=== PATIENT | female | born 1995 | race Caucasian/White ===

== ENCOUNTER 2019-08-22 17:52 | Emergency (ER) | payer OTHER ==
[2019-08-22 18:39] VITALS: BP 119/70; PULSE 97; TEMP 98.2
[2019-08-22] MEDS ORDERED: DEXTROSE 5%-LACTATED RINGERS 500 ML IV ONE (19:00)
[2019-08-22 20:05] LABS: EPI CELLS 6.6 /HPF (0-5/HPF); HYALINE CASTS 1 /lpf (0-8); PH,URINE 6.5 (5.0-8.0); URINE APPEARANCE CLEAR; URINE BACTERIA 170.2 /hpf (NEGATIVE); URINE BILIRUBIN NEGATIVE (NEGATIVE); URINE COLOR YELLOW; URINE GLUCOSE (UA) NEGATIVE (NEGATIVE); URINE KETONE NEGATIVE (NEGATIVE); URINE LEUK ESTERASE TRACE (NEGATIVE); URINE NITRITE NEGATIVE (NEGATIVE); URINE PROTEIN NEGATIVE (NEGATIVE); URINE RBC 1 /hpf (0-4); URINE UROBILINOGEN 0.2 mg/dL (0.2-1.0); URINE WBC 7 /hpf (0-5)
[2019-08-22 20:08] LABS: HEMATOCRIT 34.1 % (32.4-45.2); HEMOGLOBIN 11.4 GM/dL (10.7-15.3); MCH 31.6 pg (25.7-33.7); MCHC 33.4 g/dl (32.0-36.0); MEAN CELL VOLUME 94.7 fl (80-96); MEAN PLT VOLUME 9.9 fl (7.5-11.1); PLATELET COUNT 232 K/MM3 (134-434); RDW 13.7 % (11.6-15.6); WHITE BLOOD COUNT 11.8 K/mm3 (4.0-10.0)
[2019-08-22 20:35] LABS: ALBUMIN 2.7 g/dl (3.4-5.0); BILIRUBIN,TOTAL 0.6 mg/dL (0.2-1); BLOOD UREA NITROGEN 6.5 mg/dL (7-18); CALCIUM 8.7 mg/dL (8.5-10.1); CREATININE 0.6 mg/dL (0.55-1.3); POTASSIUM 3.7 mmol/L (3.5-5.1); TOT PROT 6.1 g/dl (6.4-8.2)
== END 2019-08-22 22:22 | disposition home or self-care (01) ==
LOC: JER 17:52
DX: O26.893 Other specified pregnancy related conditions, third trimester (principal); Z3A.32 32 weeks gestation of pregnancy; R10.30 Lower abdominal pain, unspecified
CPT/HCPCS: 36415; 80053; 81003; 85027; 87077; 87086; 99281-25

== ENCOUNTER 2023-07-28 14:00 | Inpatient (IN) | payer OTHER ==
[2023-07-29] MEDS ORDERED: ELECTROLYTE-148 SOLN 500 ML IV ONE (06:00)
[2023-07-29] MEDS ORDERED: CITRIC ACID/SODIUM CITRATE 30 ML UNIT-DOSE CUP PO ONE (06:00)
[2023-07-29 06:34] VITALS: BMI 42.0
[2023-07-29] MEDS ORDERED: AMPICILLIN SODIUM 2 GM VIAL ONE (06:53)
[2023-07-29] MEDS ORDERED: AMPICILLIN - 2 GM in SODIUM CHLORIDE 100 ML IVPB ONE ×2 (06:55→07:41)
[2023-07-29] MEDS ORDERED: CEFAZOLIN SODIUM 2 GM in DEXTROSE 5%-WATER 100 ML IVPB ONE (07:03)
[2023-07-29] MEDS ORDERED: OXYTOCIN 20 UNITS in 0.9% NS 40 UNIT/2,000 ML INFUS.BAG IV ONE (07:55)
[2023-07-29] MEDS ORDERED: ONDANSETRON 4 MG/2 ML VIAL ONE (07:57)
[2023-07-29] MEDS ORDERED: DEXAMETHASONE SOD PHOSPHATE 4 MG/1 ML VIAL ONE (07:57)
[2023-07-29] MEDS ORDERED: ceFAZolin SODIUM 1 GM VIAL ONE (07:57)
[2023-07-29] MEDS ORDERED: morphine SULFATE/PF 1 MG/2 ML (2cc Syringe - QUVA) ONE (07:58)
[2023-07-29] MEDS ORDERED: METHYLERGONOVINE MALEATE 0.2 MG/1 ML AMP IM PRN (09:04)
[2023-07-29] MEDS ORDERED: IBUPROFEN 800 MG/8 ML IJ IVPB PRN (09:05)
[2023-07-29] MEDS ORDERED: CEFAZOLIN SODIUM 2 GM in DEXTROSE 5%-WATER 100 ML IVPB SCH (09:15)
[2023-07-29] MEDS ORDERED: ONDANSETRON 4 MG/2 ML VIAL IVPUSH PRN (09:16)
[2023-07-29 09:26] LABS: CORD BASE EXCESS -1.7 mmol/L (0-2); CORD HCO3 24.7 mmHg (20-29); CORD PCO2 47.8 mmHg (30-78); CORD pH 7.332 (7.14-7.44)
[2023-07-29 09:28] LABS: CORD HCO3 27.7 mmHg (20-29); CORD pH 7.261 (7.14-7.44)
[2023-07-29] MEDS: ACETAMINOPHEN 1000 MG/100 ML BAG IVPB PRN ×2 (10:12→23:34)
[2023-07-29] MEDS: ENOXAPARIN NA (PORCINE) 40 MG/0.4 ML DISP.SYRIN SQ SCH (12:07)
[2023-07-29] MEDS: ELECTROLYTE-148 SOLN 1,000 ML IV SCH (12:08)
[2023-07-29] MEDS: OXYTOCIN 20 UNITS in 0.9% NS 20 UNIT/1,000 ML INFUS.BAG IV SCH ×2 (14:18→23:00)
[2023-07-29] MEDS: CEFAZOLIN SODIUM 2 GM in DEXTROSE 5%-WATER 100 ML IVPB SCH (16:59)
[2023-07-29] MEDS ORDERED: oxyCODONE HCL 5 MG TABLET PO PRN ×2 (21:04)
[2023-07-29] MEDS: SIMETHICONE 80 MG TAB.CHEW (FP) PO PRN (22:00)
[2023-07-30] MEDS: CEFAZOLIN SODIUM 2 GM in DEXTROSE 5%-WATER 100 ML IVPB SCH ×2 (00:19→08:46)
[2023-07-30] MEDS: SIMETHICONE 80 MG TAB.CHEW (FP) PO PRN ×2 (06:30→21:09)
[2023-07-30 08:24] LABS: BASO % 0.2 % (0-2.0); EOS % 0.7 % (0-4.5); HEMATOCRIT 30.4 % (32.4-45.2); HEMOGLOBIN 10.3 GM/dL (10.7-15.3); LYMPH % 22.6 % (8-40); MCH 31.1 pg (25.7-33.7); MEAN CELL VOLUME 91.4 fl (80-96); MEAN PLT VOLUME 9.4 fl (7.5-11.1); MONO % 6.2 % (3.8-10.2); NEUT % 70.3 % (42.8-82.8); PLATELET COUNT 188 10^3/uL (134-434); RBC 3.33 M/mm3 (3.60-5.2); WHITE BLOOD COUNT 10.1 K/mm3 (4.0-10.0)
[2023-07-30] MEDS: ENOXAPARIN NA (PORCINE) 40 MG/0.4 ML DISP.SYRIN SQ SCH (10:57)
[2023-07-30] MEDS: IBUPROFEN 600 MG TABLET (FP) PO PRN ×2 (12:25→21:10)
[2023-07-30] MEDS: BISACODYL 10 MG SUPP.RECT RC PRN (21:09)
[2023-07-30] MEDS: SENNOSIDES/DOCUSATE COMBO (SENNA PLUS) TABLET (UD) PO PRN (22:38)
[2023-07-31] MEDS: SIMETHICONE 80 MG TAB.CHEW (FP) PO PRN ×4 (01:42→21:33)
[2023-07-31] MEDS: IBUPROFEN 600 MG TABLET (FP) PO PRN ×3 (07:33→21:33)
[2023-07-31] MEDS: ENOXAPARIN NA (PORCINE) 40 MG/0.4 ML DISP.SYRIN SQ SCH (09:56)
[2023-07-31] MEDS: BISACODYL 10 MG SUPP.RECT RC PRN (11:17)
[2023-07-31] MEDS: ACETAMINOPHEN 325 MG TABLET (FP) PO PRN (11:30)
[2023-07-31] MEDS: ELECTROLYTE-148 SOLN 1,000 ML IV SCH (19:50)
[2023-07-31] MEDS: OXYTOCIN 20 UNITS in 0.9% NS 20 UNIT/1,000 ML INFUS.BAG IV SCH (19:50)
[2023-07-31] MEDS: SENNOSIDES/DOCUSATE COMBO (SENNA PLUS) TABLET (UD) PO PRN (23:58)
[2023-08-01] MEDS: ACETAMINOPHEN 325 MG TABLET (FP) PO PRN (08:01)
[2023-08-01 09:15] LABS: BASO % 0.3 % (0-2.0); EOS % 3.3 % (0-4.5); HEMATOCRIT 30.5 % (32.4-45.2); HEMOGLOBIN 10.3 GM/dL (10.7-15.3); LYMPH % 23.2 % (8-40); MCH 30.9 pg (25.7-33.7); MCHC 33.7 g/dl (32.0-36.0); MEAN CELL VOLUME 91.7 fl (80-96); MEAN PLT VOLUME 9.3 fl (7.5-11.1); MONO % 5.3 % (3.8-10.2); NEUT % 67.9 % (42.8-82.8); PLATELET COUNT 216 10^3/uL (134-434); RBC 3.33 M/mm3 (3.60-5.2); RDW 13.7 % (11.6-15.6); WHITE BLOOD COUNT 9.3 K/mm3 (4.0-10.0)
[2023-08-01] MEDS: ENOXAPARIN NA (PORCINE) 40 MG/0.4 ML DISP.SYRIN SQ SCH (11:00)
[2023-08-01] MEDS: IBUPROFEN 600 MG TABLET (FP) PO PRN (11:25)
[2023-08-01 22:56] VITALS: RESP 18
[2023-08-02] MEDS: SENNOSIDES/DOCUSATE COMBO (SENNA PLUS) TABLET (UD) PO PRN (01:45)
[2023-08-02] MEDS: SIMETHICONE 80 MG TAB.CHEW (FP) PO PRN ×2 (01:45→09:53)
[2023-08-02] MEDS: IBUPROFEN 600 MG TABLET (FP) PO PRN ×2 (01:46→09:53)
[2023-08-02] MEDS: ENOXAPARIN NA (PORCINE) 40 MG/0.4 ML DISP.SYRIN SQ SCH (09:53)
[2023-08-02 10:52] VITALS: BP 121/81; PULSE 81; TEMP 98
== END 2023-08-02 13:40 | disposition home or self-care (01) | DRG 540 ==
LOC: JLDR 07-29 05:45 → J3W 07-29 12:15
PROVIDERS: ADMIT Obstetrics & Gynecology; ATTEND Obstetrics & Gynecology
PROC: 10D00Z1 Extraction of Products of Conception, Low, Open Approach (ICD-10-PCS; principal; 2023-07-29)
DX: O34.211 Maternal care for low transverse scar from previous cesarean delivery (principal); N85.8 Other specified noninflammatory disorders of uterus; O99.214 Obesity complicating childbirth; O42.92 Full-term premature rupture of membranes, unspecified as to length of time between rupture and onset of labor; Z3A.39 39 weeks gestation of pregnancy; Z37.0 Single live birth
CPT/HCPCS: 36415; 36600; 80048; 82803; 85025; 85610; 85730; 86780; 86850; 86900; 86901; 88307-TC; 94010